=== PATIENT | female | born 2000 | race Caucasian/White ===

== ENCOUNTER 2020-11-22 00:18 | Emergency (ER) | payer OTHER ==
--- NOTE | 2020-11-22 02:25 | EDM.PDOC ---
ED HPI GENERAL MEDICAL PROBLEM - General Chief Complaint: General Stated Complaint: KIDNEY PAIN Time Seen by Provider: 11/22/20 00:41 Source of Information: Reports: Patient History Limitations: Reports: No Limitations - History of Present Illness INITIAL COMMENTS - FREE TEXT/NARRATIVE: Arielle is a 20-year-old female who presents to the ED for evaluation of bilateral flank pain. The patient states that she had COVID-19 6 weeks ago and has not fully recovered from this. She has been experiencing bilateral flank pain that is worsened over the course of the last 24 hours but denies any urgency, frequency, or burning with urination. She has had a persistent cough since having COVID-19. She says she has had fever and chills and on examination feels quite warm. She has had some nausea but denies any vomiting. She denies any diarrhea. She is from [place], [place] but is in the area camping today. Bilateral Flank Pain Score (Numeric/FACES): 9 - Related Data Allergies Allergy/AdvReac Type Severity Reaction Status Date / Time No Known Allergies Allergy Verified 11/22/20 00:34 Home Meds: Home Meds methocarbamoL [Methocarbamol] 750 mg PO QID PRN #28 tablet 11/22/20 [Rx] Past Medical History Musculoskeletal History: Reports: Fracture Neurological History: Reports: Migraines Psychiatric History: Reports: Anxiety, Depression Hematologic History: Reports: Anemia - Infectious Disease History Infectious Disease History: Reports: Influenza, Mononucleosis, Novel Coronavirus - Past Surgical History HEENT Surgical History: Reports: Myringotomy w Tube(s), Tonsillectomy Social & Family History - Tobacco Use Tobacco Use Status *Q: Never Tobacco User - Caffeine Use Caffeine Use: Reports: Coffee, Energy Drinks, Soda, Tea - Recreational Drug Use Recreational Drug Use: No ED ROS GENERAL - Review of Systems Review Of Systems: See Below Constitutional: Reports: Fever, Chills, Malaise HEENT: Reports: No Symptoms Respiratory: Reports: Shortness of Breath, Cough Cardiovascular: Reports: No Symptoms Endocrine: Reports: Fatigue GI/Abdominal: Reports: Nausea : Reports: Flank Pain (Bilateral flank pain). Denies: Dysuria, Frequency, Urgency Musculoskeletal: Reports: Back Pain Skin: Reports: No Symptoms Neurological: Reports: No Symptoms Psychiatric: Reports: No Symptoms Hematologic/Lymphatic: Reports: No Symptoms Immunologic: Reports: No Symptoms ED EXAM, GENERAL - Physical Exam Exam: See Below Exam Limited By: No Limitations General Appearance: Alert, Anxious, Mild Distress Eye Exam: Bilateral Eye: EOMI, PERRL Throat/Mouth: Normal Inspection, Normal Oropharynx, Normal Voice, No Airway Compromise Head: Atraumatic, Normocephalic Neck: Normal Inspection, Supple. No: Lymphadenopathy (R), Lymphadenopathy (L) Respiratory/Chest: No Respiratory Distress, Lungs Clear, Normal Breath Sounds Cardiovascular: Normal Peripheral Pulses, Regular Rate, Rhythm, No Murmur Peripheral Pulses: 2+: Radial (L), Radial (R) GI/Abdominal: Normal Bowel Sounds, Soft, Non-Tender, No Distention. No: Guarding, Rebound Back Exam: Full Range of Motion, CVA Tenderness (R), CVA Tenderness (L), Muscle Spasm, Paraspinal Tenderness. No: Vertebral Tenderness Extremities: Normal Inspection Neurological: Alert, Oriented, Normal Cognition, No Motor/Sensory Deficits Psychiatric: Normal Affect Skin Exam: Warm, Dry Course - Vital Signs Last Recorded V/S: Last Vital Signs Temp 36.3 C 11/22/20 00:40 Pulse 136 H 11/22/20 00:40 Resp 18 11/22/20 00:40 BP 116/71 11/22/20 00:40 Pulse Ox 96 11/22/20 00:40 - Orders/Labs/Meds Labs: Laboratory Tests 11/22/20 11/22/20 11/22/20 Range/Units 00:41 01:35 01:35 WBC 10.0 (4.5-11.0) K/uL RBC 4.67 (3.30-5.50) M/uL Hgb 13.4 (12.0-15.0) g/dL Hct 39.6 (36.0-48.0) % MCV 85 (80-98) fL MCH 29 (27-31) pg MCHC 34 (32-36) % Plt Count 335 (150-400) K/uL Neut % (Auto) 82.2 H (36-66) % Lymph % (Auto) 6.8 L (24-44) % [place] % (Auto) 8.0 H (2-6) % Eos % (Auto) 2.6 (2-4) % Baso % (Auto) 0.4 (0-1) % Sodium 136 L (140-148) mmol/L Potassium 3.9 (3.6-5.2) mmol/L Chloride 99 L (100-108) mmol/L Carbon Dioxide 29 (21-32) mmol/L Anion Gap 11.9 (5.0-14.0) mmol/L BUN 11 (7-18) mg/dL Creatinine 0.8 (0.6-1.0) mg/dL Est Cr Clr Drug Dosing 92.02 mL/min Estimated GFR (MDRD) > 60 (>60) Glucose 98 (74-106) mg/dL Calcium 9.3 (8.5-10.1) mg/dL Total Bilirubin 0.3 (0.2-1.0) mg/dL AST 15 (15-37) U/L ALT 41 (12-78) U/L Alkaline Phosphatase 58 (46-116) U/L C-Reactive Protein 0.38 H (0.0-0.3) mg/dL Total Protein 7.2 (6.4-8.2) g/dL Albumin 4.1 (3.4-5.0) g/dL Globulin 3.1 (2.3-3.5) g/dL Albumin/Globulin Ratio 1.3 (1.2-2.2) HCG, Qual Urine Color Yellow (YELLOW) Urine Appearance Slightly cloudy A (CLEAR) Urine pH 7.0 (5.0-8.0) Ur Specific [place] 1.025 (1.008-1.030) Urine Protein Trace H (NEGATIVE) mg/dL Urine Glucose (UA) Negative (NEGATIVE) mg/dL Urine Ketones Negative (NEGATIVE) mg/dL Urine Occult Blood Moderate H (NEGATIVE) Urine Nitrite Negative (NEGATIVE) Urine Bilirubin Negative (NEGATIVE) Urine Urobilinogen 0.2 (0.2-1.0) EU/dL Ur Leukocyte Esterase Small H (NEGATIVE) Urine RBC 0-5 (0-5) Urine WBC 0-5 (0-5) Ur Epithelial Cells Few Amorphous Sediment Moderate Urine Bacteria Moderate Urine Mucus Not seen 11/22/20 Range/Units 01:35 WBC (4.5-11.0) K/uL RBC (3.30-5.50) M/uL Hgb (12.0-15.0) g/dL Hct (36.0-48.0) % MCV (80-98) fL MCH (27-31) pg MCHC (32-36) % Plt Count (150-400) K/uL Neut % (Auto) (36-66) % Lymph % (Auto) (24-44) % [place] % (Auto) (2-6) % Eos % (Auto) (2-4) % Baso % (Auto) (0-1) % Sodium (140-148) mmol/L Potassium (3.6-5.2) mmol/L Chloride (100-108) mmol/L Carbon Dioxide (21-32) mmol/L Anion Gap (5.0-14.0) mmol/L BUN (7-18) mg/dL Creatinine (0.6-1.0) mg/dL Est Cr Clr Drug Dosing mL/min Estimated GFR (MDRD) (>60) Glucose (74-106) mg/dL Calcium (8.5-10.1) mg/dL Total Bilirubin (0.2-1.0) mg/dL AST (15-37) U/L ALT (12-78) U/L Alkaline Phosphatase (46-116) U/L C-Reactive Protein (0.0-0.3) mg/dL Total Protein (6.4-8.2) g/dL Albumin (3.4-5.0) g/dL Globulin (2.3-3.5) g/dL Albumin/Globulin Ratio (1.2-2.2) HCG, Qual Negative Urine Color (YELLOW) Urine Appearance (CLEAR) Urine pH (5.0-8.0) Ur Specific [place] (1.008-1.030) Urine Protein (NEGATIVE) mg/dL Urine Glucose (UA) (NEGATIVE) mg/dL Urine Ketones (NEGATIVE) mg/dL Urine Occult Blood (NEGATIVE) Urine Nitrite (NEGATIVE) Urine Bilirubin (NEGATIVE) Urine Urobilinogen (0.2-1.0) EU/dL Ur Leukocyte Esterase (NEGATIVE) Urine RBC (0-5) Urine WBC (0-5) Ur Epithelial Cells Amorphous Sediment Urine Bacteria Urine Mucus Meds: Medications Discontinued Medications Generic Name Dose Route Start Last Admin Trade Name Freq PRN Reason Stop Dose Admin Ketorolac Tromethamine 30 mg 11/22/20 02:45 11/22/20 02:59 Ketorolac 30 Mg/Ml Sdv IM 11/22/20 02:46 30 mg ONETIME ONE Administration Methocarbamol 1,000 mg 11/22/20 03:45 Methocarbamol 500 Mg Tab PO 11/22/20 03:46 ONETIME ONE - Radiology Interpretation Free Text/Narrative:: I reviewed the images of the CT of the abdomen and pelvis without contrast as well as the report. The report is as follows: FINDINGS: Lower chest: Unremarkable. Liver: Unremarkable. Spleen: Unremarkable. Pancreas: Unremarkable. Gallbladder and bile ducts: Unremarkable. Adrenal glands: Unremarkable. Kidneys: Nonobstructive 2 mm stone in the left kidney. There few 2 mm nonobstructive stones in the right kidney. No hydronephrosis or hydroureter. No perinephric fat stranding. GI tract: Unremarkable. Appendix is normal. Vascular structures: Unremarkable. Lymph nodes: Unremarkable. Miscellaneous: Unremarkable. No free air or significant free fluid. Pelvic Organs: Unremarkable. Bones: Unremarkable for age. IMPRESSION: Bilateral nonobstructive nephrolithiasis. No hydronephrosis. Remainder of the exam is unremarkable. Please note that all CT scans at this facility use dose modulation, iterative reconstruction, and/or weight-based dosing when appropriate to reduce radiation dose to as low as reasonably achievable. Dictated by Thelma Robin MD @ 11/22/2020 3:04:45 AM - Re-Assessments/Exams Free Text/Narrative Re-Assessment/Exam: 11/22/20 02:25 I reviewed the patient's labs showing a normal urinalysis and urine test. The patient's CBC shows a leukocyte count of 10, hemoglobin of 13.4, hematocrit 39.6 and a platelet count of 335,000. We did not do a Covid test as she has just gotten over it 6 weeks ago and will likely still test positive. The comprehensive metabolic panel is unremarkable with a sodium 136, potassium 3.9, chloride of 99, bicarbonate of 29, BUN of 11 with a creatinine of 0.8 and a glucose of 98. C-reactive protein is also normal at 0.38. 11/22/20 02:37 the patient was given Toradol 30 mg IM for pain. I am awaiting the results of her CT of the abdomen and pelvis without contrast but it does appear that she does have a nonobstructing nephrolithiasis in the collecting system in the both kidneys. 11/22/20 03:13 the report from [facility] on the CT of the abdomen and pelvis without contrast confirms small nonobstructing nephrolithiasis in both kidneys but otherwise no other acute findings. 11/22/20 03:49 L he didn't have any significant benefit from the Toradol so we will go with methocarbamol instead at a dose of 750 mg 4 times a day as needed for muscle spasm and pain. At this time I believe that she is suitable for discharge home in satisfactory condition. Patient was given methocarbamol 1000 mg in the ED prior to discharge. Departure - Departure Time of Disposition: 03:50 Disposition: Home, Self-Care 01 Clinical Impression: Pain of paraspinal muscle, Bilateral nephrolithiasis - Discharge Information Prescriptions: methocarbamoL [Methocarbamol] 750 mg PO QID PRN #28 tablet PRN Reason: Muscle Spasm - Painful Instructions: Muscle Pain, Adult, Dietary Guidelines to Help Prevent Kidney Stones Referrals: PCP,None [Primary Care Provider] - Forms: ED Department Discharge Care Plan Goals: The work-up today has shown that your pain is most likely arising from the muscles that are used to support the back called paraspinal muscles. It is not uncommon after an illness like COVID-19 to have some residual muscle pain due to the inflammation involved in the viral illness. My plan is to treat this with oral methocarbamol 750 mg up to 4 times a day as needed for muscle spasm and pain. This is a fairly potent nonsedating muscle relaxant but should help reduce the pain you're experiencing. It can be a little hard on the stomach so make sure you take it with a snack and not on an empty stomach. Gentle stretching may also help with the back pain. The CT scan of your abdomen also demonstrated 2 small kidney stones one in each kidney. I have included information about monitoring diet for preventing kidney stones. Sepsis Event Note (ED) - Evaluation Sepsis Screening Result: No Definite Risk - Focused Exam Vital Signs: Vital Signs Temp Pulse Resp BP Pulse Ox 11/22/20 00:40 36.3 C 136 H 18 116/71 96 - Problem List & Annotations (1) Pain of paraspinal muscle SNOMED Code(s): 67785342 Code(s): M79.18 - MYALGIA, OTHER SITE Status: Acute Priority: Medium Current Visit: Yes (2) Bilateral nephrolithiasis SNOMED Code(s): 36714121 Code(s): N20.0 - CALCULUS OF KIDNEY Status: Acute Priority: Low Current Visit: Yes - Problem List Review Problem List Initiated/Reviewed/Updated: Yes
[2020-11-22] MEDS ORDERED: Ketorolac 30 MG/ML SDV IM ONE (02:45)
--- NOTE | 2020-11-22 03:06 | CRLCT ---
For Patients: As a result of the Century Cures Act, medical imaging exams and procedure reports are released immediately into your electronic medical record. You may view this report before your referring provider. If you have questions, please contact your health care provider. INDICATION: Bilateral flank pain TECHNIQUE: CT abdomen and pelvis without contrast. COMPARISON: None FINDINGS: Lower chest: Unremarkable. Liver: Unremarkable. Spleen: Unremarkable. Pancreas: Unremarkable. Gallbladder and bile ducts: Unremarkable. Adrenal glands: Unremarkable. Kidneys: Nonobstructive 2 mm stone in the left kidney. There few 2 mm nonobstructive stones in the right kidney. No hydronephrosis or hydroureter. No perinephric fat stranding. GI tract: Unremarkable. Appendix is normal. Vascular structures: Unremarkable. Lymph nodes: Unremarkable. Miscellaneous: Unremarkable. No free air or significant free fluid. Pelvic Organs: Unremarkable. Bones: Unremarkable for age. IMPRESSION: Bilateral nonobstructive nephrolithiasis. No hydronephrosis. Remainder of the exam is unremarkable. Please note that all CT scans at this facility use dose modulation, iterative reconstruction, and/or weight-based dosing when appropriate to reduce radiation dose to as low as reasonably achievable. Dictated by Thelma Robin MD @ 11/22/2020 3:04:45 AM (Electronically Signed)
[2020-11-22] MEDS ORDERED: Methocarbamol 500 MG Tab PO ONE (03:45)
== END 2020-11-22 04:07 | disposition home or self-care (01) ==
LOC: JP.ED 00:18
DX: N20.0 Calculus of kidney (principal); Z86.16 Personal history of COVID-19
CPT/HCPCS: 36415; 74176; 80053; 81001; 84703; 85025; 86140; 96372; 99284; A9270; J1885